=== PATIENT | male | born 1975 | race Caucasian/White ===

== ENCOUNTER 2021-10-27 18:00 | Emergency (ER) | payer BC ==
[2021-10-27] MEDS ORDERED: Diphtheria,Pertussis(Acell),Tetanus Vaccine 0.5 ML Syringe IM ONE (19:09)
[2021-10-27] MEDS ORDERED: Bacitracin Oint 1 GM U/D Packet TOP ONE (19:10)
[2021-10-27] MEDS: Lidocaine 1% 5 ML VIAL INJECT ONE ×2 (19:48→19:49)
== END 2021-10-27 19:56 | disposition home or self-care (01) ==
LOC: JP.ED 18:00
DX: S61.212A Laceration without foreign body of right middle finger without damage to nail, initial encounter (principal); Z23 Encounter for immunization; Z87.891 Personal history of nicotine dependence; W26.0XXA Contact with knife, initial encounter
CPT/HCPCS: 12001; 90471; 90715; 99282-25